=== PATIENT | male | born 1990 | race Caucasian/White ===

== ENCOUNTER 2018-02-04 13:47 | Emergency (ER) | payer MEDICAID, OTHER ==
[~2018-02-04] VITALS: Ht 185.4 cm; Wt 79.4 kg
--- NOTE | 2018-02-04 14:14 | NUR ---
PT IS IN ROOM #2B. DR GARRIDO EVALUATED THE PT.
[2018-02-04] MEDS ORDERED: ALBUTEROL SULFATE 2.5 MG/3 ML NEBU NEB ONE (14:30)
[2018-02-04] MEDS ORDERED: ALBUTEROL SULFATE 2.5 MG/3 ML NEBU ONE (14:38)
[2018-02-04 14:53] LABS: BASOPHILS # (AUTO) 0.1 K/uL (0.0-8.0); BASOPHILS % (AUTO) 0.9 % (0.0-2.0); EOSINOPHILS # (AUTO) 0.1 K/uL (0.0-0.7); EOSINOPHILS % (AUTO) 1.5 % (0.0-7.0); HEMATOCRIT 44.9 % (36.7-47.1); HEMOGLOBIN 15.5 g/dL (12.5-16.3); LYMPHOCYTES # (AUTO) 2.2 K/uL (20.0-40.0); LYMPHOCYTES % (AUTO) 39.4 % (20.5-51.5); MEAN CORPUSCULAR HEMOGLOBIN 32.2 uug (23.8-33.4); MEAN CORPUSCULAR HGB CONC 35 g/dL (32.5-36.3); MEAN CORPUSCULAR VOLUME 93.1 fL (73.0-96.2); MONOCYTES # (AUTO) 0.5 K/uL (2.0-10.0); MONOCYTES % (AUTO) 8.5 % (0.0-11.0); NEUTROPHILS # (AUTO) 2.8 K/uL (1.8-8.9); NEUTROPHILS % (AUTO) 49.7 % (38.5-71.5); PLATELET COUNT (AUTO) 200 K/uL (152-348); RED BLOOD CELL COUNT(AUTO) 4.82 MIL/uL (4.06-5.63); WHITE BLOOD COUNT (AUTO) 5.5 K/uL (3.6-10.2)
[2018-02-04 15:02] LABS: POTASSIUM 4.1 mmol/L (3.5-5.1)
[2018-02-04 15:15] LABS: BILIRUBIN,DIRECT 0.2 mg/dL (0.0-0.2); BILIRUBIN,TOTAL 1.3 mg/dL (0.2-1.0); TOTAL PROTEIN, SERUM 7.9 g/dL (6.4-8.2)
--- NOTE | 2018-02-04 16:20 | NUR ---
Patient does not wish to proceed with medical care recommended by Dr. GARRIDO. Patient given information related to possible complications, up to and including , which could occur as a result of leaving the hospital at this time. Patient verbalizes understanding of risks involved due to leaving against medical advice. Patient has signed AMA form.
[2018-02-04 16:32] VITALS: BP 110/81
--- NOTE | 2018-02-04 16:32 | NUR ---
Patient discharged to home in stable conditon. Written and verbal after care instructions given. Patient verbalizes understanding of instructions.
== END 2018-02-04 16:34 | disposition left against medical advice (07) ==
LOC: ER 13:47
DX: R07.9 Chest pain, unspecified (principal); K21.9 Gastro-esophageal reflux disease without esophagitis
CPT/HCPCS: 36415; 70030-TC; 71045; 85025; 85730; 93005; A4663

== ENCOUNTER 2018-10-14 10:37 | Emergency (ER) | payer MEDICAID ==
[~2018-10-14] VITALS: Ht 185.4 cm; Wt 76.2 kg
--- NOTE | 2018-10-14 10:48 | NUR ---
YEVGENIY HESS AT BEDSIDE FOR MSE.
--- NOTE | 2018-10-14 11:03 | NUR ---
Patient discharged to home in stable conditon. Written and verbal after care instructions given. Patient verbalizes understanding of instructions. ALL BELONGINGS W/ PT. PT SELF-AMBULATED W/O DIFFICULTY.
[2018-10-14 11:04] VITALS: BP 128/86
== END 2018-10-14 11:07 | disposition home or self-care (01) ==
LOC: ER 10:37
DX: F41.9 Anxiety disorder, unspecified (principal); R51 Headache; K21.9 Gastro-esophageal reflux disease without esophagitis
CPT/HCPCS: A4663

== ENCOUNTER 2019-03-14 17:57 | Emergency (ER) | payer MEDICAID ==
[~2019-03-14] VITALS: Ht 185.4 cm; Wt 76.2 kg
--- NOTE | 2019-03-14 19:02 | NUR ---
Patient discharged to home in stable conditon. Written and verbal after care instructions given. Patient verbalizes understanding of instructions.pt walks i nsteady gait.
== END 2019-03-14 19:04 | disposition home or self-care (01) ==
LOC: ER 17:59
DX: B34.9 Viral infection, unspecified (principal); K21.9 Gastro-esophageal reflux disease without esophagitis
CPT/HCPCS: A4663

== ENCOUNTER 2021-01-03 14:17 | Emergency (ER) | payer MEDICAID ==
[~2021-01-03] VITALS: Ht 185.4 cm; Wt 77.1 kg
--- NOTE | 2021-01-03 14:48 | NUR ---
PT IS IN ROOM #1A. DR ZAVALA EVALUATED THE PT.
[2021-01-03 15:21] LABS: *BILIRUBIN,URIN NEGATIVE (NEGATIVE); *BLOOD, URINE NEGATIVE (NEGATIVE); *CLARITY,URINE CLEAR (CLEAR); *COLOR,URINE YELLOW (YELLOW); *KETONES,URINE NEGATIVE (NEGATIVE); *UROBILINOGEN,URINE 0.2 E.U./dl (NORMAL); LEUKOCYTE ESTERASE ,URINE NEGATIVE (NEGATIVE); NITRITE, URINE NEGATIVE (NEGATIVE); UGLUCOSE NEGATIVE (NEGATIVE)
--- NOTE | 2021-01-03 16:32 | NUR ---
PT WAS D/C'd TO HOME D/C INSTRUCTIONS GIVEN TO THE PT BY DR ZAVALA.
[2021-01-03 16:37] VITALS: BP 125/73
[2021-01-06 02:06] LABS: *GC NAA Negative (Negative); *TRIC.VAG. NAA Negative (Negative)
== END 2021-01-03 16:37 | disposition home or self-care (01) ==
LOC: ER 14:20
DX: N48.89 Other specified disorders of penis (principal)
CPT/HCPCS: 87491; A4663

== ENCOUNTER 2021-02-22 23:44 | Emergency (ER) | payer MEDICAID ==
[~2021-02-22] VITALS: Ht 185.4 cm; Wt 78.0 kg
--- NOTE | 2021-02-23 01:00 | NUR ---
Dr. Norris at bedside for MSE.
[2021-02-23 01:27] LABS: HEMATOCRIT 40.7 % (36.7-47.1); MEAN CORPUSCULAR HEMOGLOBIN 32.7 uug (23.8-33.4); MEAN CORPUSCULAR VOLUME 90.9 fL (73.0-96.2); PLATELET COUNT (AUTO) 194 K/uL (152-348); POTASSIUM 3.6 mmol/L (3.5-5.1)
--- NOTE | 2021-02-23 02:19 | NUR ---
Patient discharged to home in stable condition. Written and verbal after care instructions given. Patient verbalizes understanding of instructions. Stressed follow up or return to ER for worsening s/s. Patient out of ER with steady gait, no acute signs of distress, VSS, all belongings taken. Provided with copies of lab, xray, and EKG results
[2021-02-23 02:21] VITALS: BP 118/80
== END 2021-02-23 02:21 | disposition home or self-care (01) ==
LOC: ER 23:46
DX: R07.89 Other chest pain (principal); E83.42 Hypomagnesemia; F17.210 Nicotine dependence, cigarettes, uncomplicated
CPT/HCPCS: 36415; 70030-TC; 71045; 83735; 85025; 93005; A4663

== ENCOUNTER 2021-06-22 16:42 | Emergency (ER) | payer MEDICAID ==
[~2021-06-22] VITALS: Ht 185.4 cm; Wt 80.7 kg
[2021-06-22 17:13] LABS: *BILIRUBIN,URIN NEGATIVE (NEGATIVE); *BLOOD, URINE NEGATIVE (NEGATIVE); *CLARITY,URINE CLEAR (CLEAR); *COLOR,URINE YELLOW (YELLOW); *KETONES,URINE NEGATIVE (NEGATIVE); LEUKOCYTE ESTERASE ,URINE NEGATIVE (NEGATIVE); NITRITE, URINE NEGATIVE (NEGATIVE); PH,URINE 7.5 (5.0-8.0); UGLUCOSE NEGATIVE (NEGATIVE)
[2021-06-22 17:25] LABS: BACTERIA,URINE NONE SEEN /HPF (NONE SEEN); RBC,URINE 0-3 /HPF (0-3); WBC,URINE NONE SEEN /HPF (0-3)
[2021-06-22 17:26] LABS: SQUAMOUS EPITHELIAL CELL,UR FEW /HPF (NONE SEEN)
--- NOTE | 2021-06-22 17:53 | NUR ---
Patient discharged to home in stable condition with brisk steady gait. Written and verbal after care instructions given by MD himself. Patient verbalized understanding and compliance of instructions. Stressed follow up with primary doctor and urologist or return to ER for worsening s/s.
[2021-06-25 08:06] LABS: *GC NAA Negative (Negative)
[2021-06-25 14:06] LABS: *TRIC.VAG. NAA Negative (Negative)
== END 2021-06-22 17:54 | disposition home or self-care (01) ==
LOC: ER 16:44
DX: R30.0 Dysuria (principal)
CPT/HCPCS: 87086; 87491; A4663

== ENCOUNTER 2021-06-24 19:48 | Emergency (ER) | payer MEDICAID ==
[~2021-06-24] VITALS: Ht 185.4 cm; Wt 79.4 kg
--- NOTE | 2021-06-24 20:00 | NUR ---
Patient walked into ER C/O pain on the groin/pelvic area. Patient is A/Ox4
[2021-06-24 20:31] LABS: HEMATOCRIT 44.8 % (36.7-47.1); MEAN CORPUSCULAR HEMOGLOBIN 32.4 uug (23.8-33.4); MEAN CORPUSCULAR VOLUME 92.5 fL (73.0-96.2); PLATELET COUNT (AUTO) 226 K/uL (152-348)
[2021-06-24 20:42] LABS: CREATININE 1.2 mg/dL (0.6-1.3); POTASSIUM 3.7 mmol/L (3.5-5.1)
[2021-06-24 20:48] LABS: BILIRUBIN,TOTAL 2.3 mg/dL (0.2-1.0); TOTAL PROTEIN, SERUM 8.2 g/dL (6.4-8.2)
--- NOTE | 2021-06-24 21:26 | NUR ---
Patient discharged to home in stable condition. Written and verbal after care instructions given. Patient verbalizes understanding of instructions. Stressed follow up or return to ER for worsening s/s. Patient is A/Ox4, no SOB, not in distress.
[2021-06-24 21:27] VITALS: BP 128/84
== END 2021-06-24 21:26 | disposition home or self-care (01) ==
LOC: ER 19:51
DX: Z00.8 Encounter for other general examination (principal)
CPT/HCPCS: 36415; 85025; A4663

== ENCOUNTER 2021-09-19 02:27 | Emergency (ER) | payer MEDICAID ==
[~2021-09-19] VITALS: Ht 185.4 cm; Wt 81.6 kg
--- NOTE | 2021-09-19 02:40 | NUR ---
Patient walked to ER with steady gait. NAD noted.
--- NOTE | 2021-09-19 02:48 | NUR ---
Pt provided urine sample, sent to lab.
[2021-09-19 03:20] LABS: *BILIRUBIN,URIN NEGATIVE (NEGATIVE); *CLARITY,URINE CLEAR (CLEAR); *COLOR,URINE YELLOW (YELLOW); *KETONES,URINE NEGATIVE (NEGATIVE); *UROBILINOGEN,URINE 0.2 E.U./dl (NORMAL); LEUKOCYTE ESTERASE ,URINE NEGATIVE (NEGATIVE); NITRITE, URINE NEGATIVE (NEGATIVE); UGLUCOSE NEGATIVE (NEGATIVE)
[2021-09-19 03:21] LABS: *BLOOD, URINE TRACE (NEGATIVE)
[2021-09-19 03:22] LABS: BACTERIA,URINE NONE SEEN /HPF (NONE SEEN); SQUAMOUS EPITHELIAL CELL,UR NONE SEEN /HPF (NONE SEEN); WBC,URINE NONE SEEN /HPF (0-3)
--- NOTE | 2021-09-19 04:23 | NUR ---
patient back from CT
[2021-09-19] MEDS ORDERED: ONDA4TAB5 PO (06:21)
--- NOTE | 2021-09-19 06:42 | NUR ---
Patient discharged to home in stable condition. Written and verbal after care instructions given. Patient verbalizes understanding of instructions. Stressed follow up or return to ER for worsening s/s. Patient is a/ox4, NAD noted. Patient is able to walk with steady gait
[2021-09-19 06:49] VITALS: BP 121/67
== END 2021-09-19 06:42 | disposition home or self-care (01) ==
LOC: ER 03:01
DX: R10.9 Unspecified abdominal pain (principal); R31.29 Other microscopic hematuria; Z72.0 Tobacco use
CPT/HCPCS: A4663

== ENCOUNTER 2022-03-03 11:58 | Emergency (ER) | payer MEDICAID ==
[~2022-03-03] VITALS: Ht 185.4 cm; Wt 79.4 kg
[~2022-03-03 11:58] MED LIST: ONDA4TAB5 PO
--- NOTE | 2022-03-03 12:09 | NUR ---
patient being seen by ER physician
[2022-03-03] MEDS ORDERED: ALBU18HF2 INH (12:15)
--- NOTE | 2022-03-03 12:18 | NUR ---
discharge instructions given to patient with prescription.
[2022-03-03 12:19] VITALS: BP 139/76
== END 2022-03-03 12:19 | disposition home or self-care (01) ==
LOC: ER 11:58
DX: T60.91XA Toxic effect of unspecified pesticide, accidental (unintentional), initial encounter (principal); R42 Dizziness and giddiness; Y92.039 Unspecified place in apartment as the place of occurrence of the external cause; R09.89 Other specified symptoms and signs involving the circulatory and respiratory systems; Z72.0 Tobacco use
CPT/HCPCS: A4663

== ENCOUNTER 2022-03-12 18:29 | Emergency (ER) | payer MEDICAID ==
[~2022-03-12] VITALS: Ht 185.4 cm; Wt 79.4 kg
[~2022-03-12 18:29] MED LIST changes: +ALBU18HF2 INH
[2022-03-12] MEDS ORDERED: MORPHINE SULFATE 4 MG/1 ML DISP.SYRIN IV ONE (19:30)
[2022-03-12] MEDS ORDERED: IV NORMAL SALINE 1000 ML BAG IV ONE (19:30)
[2022-03-12] MEDS ORDERED: PANTOPRAZOLE SODIUM IV 80 MG in IV DEXTROSE 5% 100 ML IV ONE (19:30)
[2022-03-12] MEDS ORDERED: PANTOPRAZOLE SODIUM IV 80 MG in IV DEXTROSE 5% 500 ML IV ONE (19:30)
[2022-03-12] MEDS ORDERED: ONDANSETRON 4 MG/2 ML VIAL IV ONE (19:30)
[2022-03-12 19:36] LABS: HEMATOCRIT 46.5 % (36.7-47.1); MEAN CORPUSCULAR HEMOGLOBIN 31.7 uug (23.8-33.4); MEAN CORPUSCULAR VOLUME 91.9 fL (73.0-96.2); PLATELET COUNT (AUTO) 231 K/uL (152-348)
[2022-03-12] MEDS ORDERED: PANTOPRAZOLE SODIUM 40 MG VIAL ONE (19:43)
[2022-03-12] MEDS ORDERED: ONDANSETRON 4 MG/2 ML VIAL ONE (19:44)
[2022-03-12] MEDS ORDERED: MORPHINE SULFATE 4 MG/1 ML DISP.SYRIN ONE (19:44)
[2022-03-12 19:50] LABS: *BILIRUBIN,URIN NEGATIVE (NEGATIVE); *CLARITY,URINE CLEAR (CLEAR); *COLOR,URINE YELLOW (YELLOW); *KETONES,URINE 2+ (NEGATIVE); *UROBILINOGEN,URINE 0.2 E.U./dl (NORMAL); LEUKOCYTE ESTERASE ,URINE NEGATIVE (NEGATIVE); NITRITE, URINE NEGATIVE (NEGATIVE); UGLUCOSE NEGATIVE (NEGATIVE)
[2022-03-12 19:51] LABS: BILIRUBIN,DIRECT 0.4 mg/dL (0.0-0.2); BILIRUBIN,TOTAL 2.1 mg/dL (0.2-1.0); CREATININE 1.4 mg/dL (0.6-1.3); POTASSIUM 3.4 mmol/L (3.5-5.1)
--- NOTE | 2022-03-12 19:52 | NUR ---
ADDENDUM: Intravenous End Time Documentation: Normal saline 1 liter (IV-WO) : start time: 1951 PM ; end time: 2051 PM: IV site: LAC PIV # 20 Port # 1 Protonix 80 mg IN 100 CC NS IVPB AT 50 CC /HR : start time: 2026 ; end time: 2299: IV site:LAC PIV # 20 Port # 2
[2022-03-12 19:55] LABS: *BLOOD, URINE TRACE (NEGATIVE)
--- NOTE | 2022-03-12 20:09 | NUR ---
AMBULATED INTO ROOM #4, ASSISTED INTO GOWN, PLACED ON MONITOR AND INFORMED OF PLAN OF CARE. #20G ESTABLISHED IN LEFT AC AREA, BLOOD COLLECTED AND SENT TO LAB. BEDSIDE EKG DONE FOR MD REVIEW. IVF INFUSING PER ORDER, PATIENT REFUSED MORPHINE AT THIS TIME. SIDE RAIL UP WILL CONTINUE TO MONITOR.
--- NOTE | 2022-03-12 20:52 | NUR ---
CONTINUES TO REST WITHOUT ANY C/O AT THIS TIME.
[2022-03-12 21:17] LABS: *OCCULT BLOOD STOOL NEGATIVE (NEGATIVE)
--- NOTE | 2022-03-12 22:01 | NUR ---
YEVGENIY HESS TALKING TO DR MATOS RE: PATIENT PLAN OF CARE.
[2022-03-12 22:04] LABS: BACTERIA,URINE NONE SEEN /HPF (NONE SEEN); MUCUS,URINE FEW /LPF (0-FEW); SQUAMOUS EPITHELIAL CELL,UR FEW /HPF (NONE SEEN); WBC,URINE 0-3 /HPF (0-3)
[2022-03-12] MEDS ORDERED: FAMO-132 PO (22:30)
[2022-03-12] MEDS ORDERED: ONDA4TAB11 PO (22:30)
--- NOTE | 2022-03-12 23:20 | NUR ---
ACI GIVEN, STATES UNDERSTANDING, HL REMOVED, REMAINS STABLE FOR DISCHARGE.
[2022-03-12 23:21] VITALS: BP 124/74
[2022-03-17] MEDS ORDERED: SUCR1ORA PO (19:46)
[2022-03-17] MEDS ORDERED: ESOM40CA PO (19:46)
== END 2022-03-12 23:21 | disposition home or self-care (01) ==
LOC: ER 18:40
DX: K92.2 Gastrointestinal hemorrhage, unspecified (principal); R10.13 Epigastric pain; R11.10 Vomiting, unspecified; N28.9 Disorder of kidney and ureter, unspecified; E80.6 Other disorders of bilirubin metabolism; K21.9 Gastro-esophageal reflux disease without esophagitis; Z72.0 Tobacco use; K44.9 Diaphragmatic hernia without obstruction or gangrene
CPT/HCPCS: 99285; 96365; 96366; 96375; 82270; 80076; 80048; 81001; 83690; 85025; 85730; 86850; 86900; 86901; 36415; 93005; 86677 ×2; J2405; C9113 ×3; J7060 ×2; J7040; A4663; J2270

== ENCOUNTER 2022-03-14 21:18 | Inpatient (IN) | payer MEDICAID ==
[~2022-03-14] VITALS: Ht 185.4 cm; Wt 77.1 kg
[~2022-03-14 21:18] MED LIST changes: -ALBU18HF2 INH; +FAMO-132 PO; +ONDA4TAB11 PO; -ONDA4TAB5 PO
--- NOTE | 2022-03-14 21:58 | NUR ---
After being triaged patient was placed back in the waiting room to wait for room opening.
--- NOTE | 2022-03-15 01:26 | NUR ---
Patient placed in room at this time.
[2022-03-15] MEDS: PANTOPRAZOLE SODIUM 40 MG VIAL IV ONE ×2 (01:45→06:48)
[2022-03-15] MEDS ORDERED: LIDOCAINE VISCUS 2% 15 ML UDC MM ONE (01:45)
[2022-03-15] MEDS: METOCLOPRAMIDE HCL 10 MG/2 ML VIAL IV ONE ×2 (01:45→06:48)
[2022-03-15] MEDS ORDERED: MAG HYDROX/AL HYDROX/SIMETH 30 ML LIQUID UDC PO ONE (01:45)
[2022-03-15] MEDS ORDERED: IV NORMAL SALINE 1000 ML BAG IV ONE (01:45)
[2022-03-15 01:56] LABS: CARBON DIOXIDE 23 mmol/L (21-32); CHLORIDE 99 mmol/L (98-107); CREATININE 1.2 mg/dL (0.6-1.3); GLUCOSE 74 mg/dL (74-106); POTASSIUM 3.5 mmol/L (3.5-5.1); UREA NITROGEN, BLOOD 11 mg/dL (7-18)
[2022-03-15 02:02] LABS: ALANINE AMINOTRANSFERASE 23 U/L (16-63); ALKALINE PHOSPHATASE 42 U/L (50-136); ASPARTATE AMINOTRANSFERASE 14 U/L (15-37); BILIRUBIN,TOTAL 2.7 mg/dL (0.2-1.0); ETHANOL < 3 MG/DL (0-0)
[2022-03-15 02:15] LABS: HEMATOCRIT 41.7 % (36.7-47.1); MEAN CORPUSCULAR HEMOGLOBIN 31.6 uug (23.8-33.4); MEAN CORPUSCULAR VOLUME 90.9 fL (73.0-96.2); PLATELET COUNT (AUTO) 204 K/uL (152-348)
[2022-03-15] MEDS ORDERED: IOHEXOL 300MG/ML 100 ML INFUS..BTL ONE (02:24)
[2022-03-15] MEDS ORDERED: SWABABLE VALVE TRANSFER SET EA MC ONE (02:25)
[2022-03-15] MEDS ORDERED: IV NORMAL SALINE 250 ML IV ONE (02:25)
[2022-03-15] MEDS ORDERED: MAG HYDROX/AL HYDROX/SIMETH 30 ML LIQUID UDC ONE (02:45)
[2022-03-15] MEDS ORDERED: LIDOCAINE VISCUS 2% 15 ML UDC ONE (02:45)
[2022-03-15] MEDS ORDERED: PANTOPRAZOLE SODIUM 40 MG VIAL ONE ×2 (02:45→09:14)
[2022-03-15] MEDS ORDERED: METOCLOPRAMIDE HCL 10 MG/2 ML VIAL ONE (02:46)
--- NOTE | 2022-03-15 04:13 | NUR ---
Rosanna called and spoke with Madalyn case coordinator to give clinical information about patient.
--- NOTE | 2022-03-15 06:25 | NUR ---
Dr. Dickson on panel call with Chris Saeed NP.
[2022-03-15] MEDS ORDERED: MAGNESIUM HYDROXIDE 30 ML LIQUID UDC PO PRN (07:00)
[2022-03-15] MEDS ORDERED: ACETAMINOPHEN 325 MG TABLET PO PRN (07:00)
[2022-03-15] MEDS ORDERED: ONDANSETRON 4 MG/2 ML VIAL IV PRN (07:00)
[2022-03-15] MEDS ORDERED: METOCLOPRAMIDE HCL 10 MG/2 ML VIAL IV PRN (07:00)
[2022-03-15] MEDS ORDERED: REMEDY ESSENTIAL ZINC PASTE 113 GM TP PRN (07:00)
[2022-03-15] MEDS ORDERED: PROCHLORPERAZINE EDISYLATE 10 MG/2 ML VIAL IM PRN (07:00)
--- NOTE | 2022-03-15 07:30 | NUR ---
Received report from Raji RAMOS.
--- NOTE | 2022-03-15 07:30 | NUR ---
Received report from Raji RAMOS.
[2022-03-15] MEDS: PANTOPRAZOLE SODIUM 40 MG VIAL IV SCH (09:00)
[2022-03-15] MEDS: IV NS 1000 ML 1,000 ML IV PRN (09:30)
--- NOTE | 2022-03-15 09:30 | NUR ---
Pt refused to received Protonix 40mg. "I think I just had it at around 4am, I won't be having it right now. " - per pt. Explained risks and benefits, pt acknowledged and still refused.
[2022-03-15 12:35] LABS: *BILIRUBIN,URIN NEGATIVE (NEGATIVE); *CLARITY,URINE CLEAR (CLEAR); *COLOR,URINE YELLOW (YELLOW); *KETONES,URINE 4+ (NEGATIVE); *UROBILINOGEN,URINE 0.2 E.U./dl (NORMAL); LEUKOCYTE ESTERASE ,URINE NEGATIVE (NEGATIVE); NITRITE, URINE NEGATIVE (NEGATIVE); PH,URINE 5.5 (5.0-8.0); UGLUCOSE NEGATIVE (NEGATIVE)
[2022-03-15 12:36] LABS: *BLOOD, URINE TRACE (NEGATIVE)
[2022-03-15 12:56] LABS: *AMPHETAMINE, URINE NEGATIVE (NEGATIVE); *CANNABINOID, URINE NEGATIVE (NEGATIVE); *COCCAINE, URINE NEGATIVE (NEGATIVE); *PHENCYCLIDINE SCREEN,URINE NEGATIVE (NEGATIVE)
[2022-03-15 13:55] LABS: BACTERIA,URINE NONE SEEN /HPF (NONE SEEN); RBC,URINE 0-3 /HPF (0-3); SQUAMOUS EPITHELIAL CELL,UR FEW /HPF (NONE SEEN); WBC,URINE 0-3 /HPF (0-3)
--- NOTE | 2022-03-15 14:43 | NUR ---
[place] to Dr. Lara with regards to pt's GI consult, stated that GI would probably see him tomorrow night or the ff. days. Pt acknowledged.
--- NOTE | 2022-03-15 16:12 | NUR ---
Spoke to Debbi from [place], pt was requesting to be transfered to a different hospital d/t unavailability of the GI today. Per Debbi, pt is not qualified to be transfered to a different hospital because we have a GI but not to be consulting him today. Pt aware.
--- NOTE | 2022-03-15 16:38 | NUR ---
Txted Dr. Lara if the pt can have PO tonight. Dr. Lara said "yes". Pt aware.
--- NOTE | 2022-03-15 16:55 | NUR ---
Gave report to Jakub RAMOS.
[2022-03-15 17:20] VITALS: BP 127/68
--- NOTE | 2022-03-15 17:22 | NUR ---
Pt in stable condition, Remigio kapoor/S WNL. Transported pt via wheelchair, to [facility] unit, Rm [id number]. Received by Jakub RAMOS. Addendum: 03/15/22 at 1728 by DARIUS *Med-Surg Unit
--- NOTE | 2022-03-15 19:52 | NUR ---
RECEIVED REPORT FROM RACHEL JENNINGS FROM ER. PATIENT ARRIVED ON UNIT AT 1720. PATIENT IS ALERT & ORIENTED X4, AND ABLE TO SPEAK [place]. VITAL SIGNS STABLE. RN ORIENTED PATIENT TO UNIT. PATIENT AGREEABLE TO CHANGE INTO GOWNS AND SOCKS. PATIENT BELONGINGS LIST COMPLETED, SIGNED BY PATIENT. PATIENT DENIES NAUSEA UPON ADMISSION TO UNIT. PATIENT DENIES PAIN. ADMISSION DOCUMENTS AND EDUCATION COMPLETED. PER REPORT, DR. KRISTEN MD, CLEARED PATIENT TO RECEIVE FOOD, UNTIL MIDNIGHT PATIENT WILL BE NPO AGAIN. RN APPLIED REGULAR DIET TO ORDERS. PATIENT DENIES NAUSEA AND VOMITING AT THIS TIME. PATIENT VOIDS, NO BOWEL MOVEMENT NOTED. FALL PRECAUTIONS OBSERVED. PATIENT UNDERSTANDS TO CALL RN REGARDING ASSISTANCE. NO ACUTE DISTRESS NOTED. ALL NEEDS MET AT THIS TIME. ENDORSED CARE TO LEW GUZMAN, FOR CONTINUATION OF CARE.
[2022-03-15 20:00] VITALS: BP 126/84
--- NOTE | 2022-03-15 20:00 | NUR ---
NSG: Received patient lying in bed. a/o x4,ambulatory. no c/o n/v at this time. family at bedside. call light w/in reach.
[2022-03-15] MEDS: SUCRALFATE 1 G/10 ML LIQUID UDC PO SCH ×3 (20:43→21:26)
[2022-03-15] MEDS: DOCUSATE SODIUM 100 MG CAPSULE PO SCH ×3 (20:44→21:26)
[2022-03-16 04:00] VITALS: BP 113/56
[2022-03-16] MEDS: IV NS 1000 ML 1,000 ML IV PRN (06:30)
[2022-03-16 06:56] LABS: HEMATOCRIT 37.9 % (36.7-47.1); MEAN CORPUSCULAR HEMOGLOBIN 31.3 uug (23.8-33.4); MEAN CORPUSCULAR VOLUME 91.3 fL (73.0-96.2); PLATELET COUNT (AUTO) 189 K/uL (152-348)
[2022-03-16 07:19] LABS: CREATININE 1.1 mg/dL (0.6-1.3); MAGNESIUM 1.8 mg/dL (1.8-2.4); PHOSPHOROUS 3.7 mg/dL (2.5-4.9); POTASSIUM 3.9 mmol/L (3.5-5.1)
[2022-03-16] MEDS: SUCRALFATE 1 G/10 ML LIQUID UDC PO SCH ×4 (07:30→20:51)
[2022-03-16] MEDS: PANTOPRAZOLE SODIUM 40 MG VIAL IV SCH ×2 (09:00→20:52)
[2022-03-16 11:55] VITALS: BP 124/66
[2022-03-16 16:00] VITALS: BP 118/68
[2022-03-16] MEDS: DOCUSATE SODIUM 100 MG CAPSULE PO SCH (20:51)
[2022-03-16] MEDS ORDERED: IV D5/ 0.9% NACL 1,000 ML IV PRN (21:30)
[2022-03-17] MEDS: SUCRALFATE 1 G/10 ML LIQUID UDC PO SCH ×3 (06:43→16:57)
[2022-03-17] MEDS ORDERED: PANTOPRAZOLE SODIUM 40 MG VIAL IV SCH (09:00)
[2022-03-17 12:00] VITALS: BP 141/89
[2022-03-17] MEDS ORDERED: ONDANSETRON 4 MG/2 ML VIAL IV PRN (12:15)
[2022-03-17 16:00] VITALS: BP 145/87
[2022-03-17] MEDS ORDERED: SUCR1ORA PO (19:46)
[2022-03-17] MEDS ORDERED: ESOM40CA PO (19:46)
--- NOTE | 2022-03-17 20:07 | NUR ---
PATIENT DISCHARGED HOME IN STABLE CONDITION.
== END 2022-03-17 20:07 | disposition home or self-care (01) | DRG 241 ==
LOC: ER 21:21 → TRANSITION 03-15 06:25 → TELE3 03-15 16:54 → MEDSURG3 03-15 17:11
PROVIDERS: ADMIT Internal Medicine; ATTEND Internal Medicine
DX: K29.20 Alcoholic gastritis without bleeding (principal); E87.29 Other acidosis; E80.6 Other disorders of bilirubin metabolism; E86.0 Dehydration; F32.A Depression, unspecified; F41.9 Anxiety disorder, unspecified; Z87.891 Personal history of nicotine dependence; Z20.822 Contact with and (suspected) exposure to COVID-19; K64.8 Other hemorrhoids; K44.9 Diaphragmatic hernia without obstruction or gangrene; F10.21 Alcohol dependence, in remission; R63.4 Abnormal weight loss; Z68.22 Body mass index [BMI] 22.0-22.9, adult; E80.4 Gilbert syndrome; K27.9 Peptic ulcer, site unspecified, unspecified as acute or chronic, without hemorrhage or perforation
CPT/HCPCS: 36415; 83605; 83690; 83735; 84100; 84484; 85025; 85730; A4663; C9113; G0378; G0480; J2405; J2765; J7040; J7042; Q9967

== ENCOUNTER 2022-07-15 16:31 | Emergency (ER) | payer MEDICAID ==
[~2022-07-15] VITALS: Ht 185.4 cm; Wt 74.8 kg
[~2022-07-15 16:31] MED LIST changes: +ESOM40CA PO; -FAMO-132 PO; +SUCR1ORA PO
[2022-07-15 16:59] LABS: HEMATOCRIT 43.2 % (36.7-47.1); MEAN CORPUSCULAR HEMOGLOBIN 31.2 uug (23.8-33.4); MEAN CORPUSCULAR VOLUME 92.1 fL (73.0-96.2); PLATELET COUNT (AUTO) 224 K/uL (152-348)
[2022-07-15 17:13] LABS: CARBON DIOXIDE 26 mmol/L (21-32); CHLORIDE 105 mmol/L (98-107); CREATININE 1.1 mg/dL (0.6-1.3); GLUCOSE 99 mg/dL (74-106); POTASSIUM 3.3 mmol/L (3.5-5.1); UREA NITROGEN, BLOOD 9 mg/dL (7-18)
[2022-07-15 17:22] LABS: ALANINE AMINOTRANSFERASE 31 U/L (16-63); ALKALINE PHOSPHATASE 54 U/L (50-136); ASPARTATE AMINOTRANSFERASE 16 U/L (15-37); BILIRUBIN,DIRECT 0.3 mg/dL (0.0-0.2); BILIRUBIN,TOTAL 1.5 mg/dL (0.2-1.0); TOTAL PROTEIN, SERUM 7.8 g/dL (6.4-8.2)
--- NOTE | 2022-07-15 18:28 | NUR ---
Patient discharged to home in stable condition. Written and verbal after care instructions given. Patient verbalizes understanding of instructions. Stressed follow up or return to ER for worsening s/s.
== END 2022-07-15 19:03 | disposition home or self-care (01) ==
LOC: ER 16:32
DX: R07.89 Other chest pain (principal); F17.210 Nicotine dependence, cigarettes, uncomplicated; Z79.899 Other long term (current) drug therapy
CPT/HCPCS: 36415; 71045; 84484; 85025; 93005; A4663

== ENCOUNTER 2023-07-29 17:31 | Emergency (ER) | payer SELFPAY ==
[~2023-07-29] VITALS: Ht 185.4 cm; Wt 75.3 kg
[2023-07-29 18:41] LABS: *BILIRUBIN,URIN NEGATIVE (NEGATIVE); *BLOOD, URINE TRACE (NEGATIVE); *CLARITY,URINE CLEAR (CLEAR); *COLOR,URINE YELLOW (YELLOW); *KETONES,URINE 1+ (NEGATIVE); *PROTEIN,URINE NEGATIVE (NEGATIVE); *UROBILINOGEN,URINE 0.2 E.U./dl (NORMAL); LEUKOCYTE ESTERASE ,URINE NEGATIVE (NEGATIVE); NITRITE, URINE NEGATIVE (NEGATIVE); PH,URINE 5.5 (5.0-8.0); UGLUCOSE NEGATIVE (NEGATIVE)
[2023-07-29 18:43] LABS: BASOPHILS % (AUTO) 0.7 % (0.0-2.0); EOSINOPHILS # (AUTO) 0.1 K/uL (0.0-0.7); EOSINOPHILS % (AUTO) 1.4 % (0.0-7.0); HEMATOCRIT 42.2 % (36.7-47.1); HEMOGLOBIN 14.2 g/dL (12.5-16.3); LYMPHOCYTES % (AUTO) 31.5 % (20.5-51.5); MEAN CORPUSCULAR HEMOGLOBIN 30.6 uug (23.8-33.4); MEAN CORPUSCULAR HGB CONC 34 g/dL (32.5-36.3); MEAN CORPUSCULAR VOLUME 90.9 fL (73.0-96.2); MONOCYTES # (AUTO) 0.4 K/uL (0.1-1.30); MONOCYTES % (AUTO) 6.7 % (0.0-11.0); NEUTROPHILS # (AUTO) 3.8 K/uL (1.8-8.9); NEUTROPHILS % (AUTO) 59.7 % (38.5-71.5); PLATELET COUNT (AUTO) 196 K/uL (152-348); RED BLOOD CELL COUNT(AUTO) 4.64 MIL/uL (4.06-5.63); RED CELL DISTRIBUTION WIDTH 12.3 % (12.1-16.2); WHITE BLOOD COUNT (AUTO) 6.3 K/uL (3.6-10.2)
[2023-07-29 18:58] LABS: BACTERIA,URINE NONE SEEN /HPF (NONE SEEN); RBC,URINE 0-3 /HPF (0-3); WBC,URINE NONE SEEN /HPF (0-3)
[2023-07-29 18:58] LABS: CALCIUM 8.9 mg/dL (8.5-10.1); CARBON DIOXIDE 25 mmol/L (21-32); CHLORIDE 105 mmol/L (98-107); CREATININE 1.1 mg/dL (0.6-1.3); GLUCOSE 92 mg/dL (74-106); POTASSIUM 3.9 mmol/L (3.5-5.1); SODIUM SERUM 139 mmol/L (136-145); UREA NITROGEN, BLOOD 14 mg/dL (7-18)
[2023-07-29 19:03] LABS: ALANINE AMINOTRANSFERASE 26 U/L (16-63); ALBUMIN 3.9 g/dL (3.4-5.0); ALKALINE PHOSPHATASE 54 U/L (50-136); ASPARTATE AMINOTRANSFERASE 7 U/L (15-37); BILIRUBIN,DIRECT 0.3 mg/dL (0.0-0.2); BILIRUBIN,TOTAL 1.5 mg/dL (0.2-1.0); LIPASE 28 U/L (16-77); TOTAL PROTEIN, SERUM 7.6 g/dL (6.4-8.2)
[2023-07-29] MEDS ORDERED: PHEN-704 PO (20:15)
[2023-07-29] MEDS ORDERED: PHENAZOPYRIDINE HCL 100 MG TABLET ONE (20:22)
[2023-07-29] MEDS: PHENAZOPYRIDINE HCL 100 MG TABLET PO ONE (20:38)
[2023-07-29 20:57] VITALS: BP 125/82; O2SAT 99
== END 2023-07-29 20:45 | disposition home or self-care (01) ==
LOC: ER 17:35
DX: R35.0 Frequency of micturition (principal); F17.200 Nicotine dependence, unspecified, uncomplicated; Z79.899 Other long term (current) drug therapy; Z60.2 Problems related to living alone
CPT/HCPCS: 36415; 83690; 84484; 85025; 85730; A4606; A4663

== ENCOUNTER 2023-08-20 08:06 | Emergency (ER) | payer MEDICAID ==
[~2023-08-20] VITALS: Ht 185.4 cm; Wt 74.8 kg
[~2023-08-20 08:06] MED LIST changes: +PHEN-704 PO
[2023-08-20 08:48] LABS: EOSINOPHILS # (AUTO) 0.1 K/uL (0.0-0.7); EOSINOPHILS % (AUTO) 1.9 % (0.0-7.0); HEMATOCRIT 43.5 % (36.7-47.1); HEMOGLOBIN 14.4 g/dL (12.5-16.3); LYMPHOCYTES # (AUTO) 1.8 K/uL (0.8-4.8); LYMPHOCYTES % (AUTO) 38.6 % (20.5-51.5); MEAN CORPUSCULAR HEMOGLOBIN 30.2 uug (23.8-33.4); MEAN CORPUSCULAR HGB CONC 33 g/dL (32.5-36.3); MONOCYTES # (AUTO) 0.4 K/uL (0.1-1.30); MONOCYTES % (AUTO) 8.7 % (0.0-11.0); NEUTROPHILS # (AUTO) 2.4 K/uL (1.8-8.9); NEUTROPHILS % (AUTO) 49.8 % (38.5-71.5); PLATELET COUNT (AUTO) 197 K/uL (152-348); RED BLOOD CELL COUNT(AUTO) 4.79 MIL/uL (4.06-5.63); RED CELL DISTRIBUTION WIDTH 12.8 % (12.1-16.2); WHITE BLOOD COUNT (AUTO) 4.7 K/uL (3.6-10.2)
[2023-08-20 08:52] LABS: DIFFERENTIAL COMMENT 1
[2023-08-20 08:57] LABS: *BILIRUBIN,URIN NEGATIVE (NEGATIVE); *BLOOD, URINE NEGATIVE (NEGATIVE); *CLARITY,URINE CLEAR (CLEAR); *COLOR,URINE YELLOW (YELLOW); *KETONES,URINE NEGATIVE (NEGATIVE); *PROTEIN,URINE NEGATIVE (NEGATIVE); *UROBILINOGEN,URINE 0.2 E.U./dl (NORMAL); LEUKOCYTE ESTERASE ,URINE NEGATIVE (NEGATIVE); NITRITE, URINE NEGATIVE (NEGATIVE); PH,URINE 5.5 (5.0-8.0); UGLUCOSE NEGATIVE (NEGATIVE)
[2023-08-20 08:57] LABS: CREATININE 1.1 mg/dL (0.6-1.3); POTASSIUM 4.1 mmol/L (3.5-5.1)
[2023-08-20 09:03] LABS: ALBUMIN 3.7 g/dL (3.4-5.0); BILIRUBIN,DIRECT 0.2 mg/dL (0.0-0.2); BILIRUBIN,TOTAL 1.8 mg/dL (0.2-1.0); TOTAL PROTEIN, SERUM 7.6 g/dL (6.4-8.2)
[2023-08-20 09:11] LABS: THYROID STIMULATING HORMONE 1.579 mIU/mL (0.358-3.740)
[2023-08-20 09:27] LABS: MAGNESIUM 2.2 mg/dL (1.8-2.4); URIC ACID 4.4 mg/dL (3.5-7.2)
[2023-08-20 09:37] LABS: C-REACTIVE PROTEIN < 0.01 mg/dL (0.00-0.30)
[2023-08-20] MEDS ORDERED: CYANOCOBALAMIN 1000 MCG/ML VIAL ONE (09:55)
[2023-08-20] MEDS: CYANOCOBALAMIN 1000 MCG/ML VIAL IM ONE (09:59)
[2023-08-20 10:55] VITALS: BP 130/76; TEMP 207.7; O2SAT 98
== END 2023-08-20 10:56 | disposition home or self-care (01) ==
LOC: ER 08:07
DX: R10.9 Unspecified abdominal pain (principal); R11.0 Nausea; F17.210 Nicotine dependence, cigarettes, uncomplicated; Z79.899 Other long term (current) drug therapy
CPT/HCPCS: 99285; 80076; 80048; 81003; 82607; 83735; 84443; 84550; 85025; 86140; 36415; 96372; J3420; A4606; A4663

== ENCOUNTER 2023-08-27 11:26 | Emergency (ER) | payer MEDICAID ==
[~2023-08-27] VITALS: Ht 185.4 cm; Wt 77.1 kg
[2023-08-27 12:38] LABS: BASOPHILS # (AUTO) 0.1 K/UL (0.0-0.2); BASOPHILS % (AUTO) 1.7 % (0.0-2.0); EOSINOPHILS % (AUTO) 0.7 % (0.0-7.0); HEMOGLOBIN 14.3 g/dL (12.5-16.3); LYMPHOCYTES # (AUTO) 1.3 K/uL (0.8-4.8); LYMPHOCYTES % (AUTO) 29.2 % (20.5-51.5); MEAN CORPUSCULAR HGB CONC 33 g/dL (32.5-36.3); MEAN CORPUSCULAR VOLUME 90.2 fL (73.0-96.2); MONOCYTES # (AUTO) 0.3 K/uL (0.1-1.30); MONOCYTES % (AUTO) 6.3 % (0.0-11.0); NEUTROPHILS # (AUTO) 2.8 K/uL (1.8-8.9); NEUTROPHILS % (AUTO) 62.1 % (38.5-71.5); PLATELET COUNT (AUTO) 202 K/uL (152-348); RED BLOOD CELL COUNT(AUTO) 4.77 MIL/uL (4.06-5.63); RED CELL DISTRIBUTION WIDTH 12.8 % (12.1-16.2); WHITE BLOOD COUNT (AUTO) 4.5 K/uL (3.6-10.2)
[2023-08-27 12:55] LABS: ETHANOL < 3 MG/DL (0-10)
[2023-08-27 12:56] LABS: AMMONIA < 10 umol/L (11-32)
[2023-08-27 13:04] LABS: CARBON DIOXIDE 25 mmol/L (21-32); CHLORIDE 105 mmol/L (98-107); GLUCOSE 97 mg/dL (74-106); POTASSIUM 4.1 mmol/L (3.5-5.1); SODIUM SERUM 141 mmol/L (136-145); UREA NITROGEN, BLOOD 11 mg/dL (7-18)
[2023-08-27] MEDS ORDERED: B CO1TAB6 PO (13:06)
[2023-08-27] MEDS ORDERED: THIA100T88 PO (13:06)
[2023-08-27 13:12] LABS: ALANINE AMINOTRANSFERASE 29 U/L (16-63); ALBUMIN 3.8 g/dL (3.4-5.0); ALKALINE PHOSPHATASE 53 U/L (50-136); ASPARTATE AMINOTRANSFERASE 7 U/L (15-37); BILIRUBIN,DIRECT 0.3 mg/dL (0.0-0.2); BILIRUBIN,TOTAL 1.3 mg/dL (0.2-1.0); TOTAL PROTEIN, SERUM 7.4 g/dL (6.4-8.2)
[2023-08-27 14:15] VITALS: BP 148/88; O2SAT 99
== END 2023-08-27 14:17 | disposition home or self-care (01) ==
LOC: ER 11:34
DX: I67.89 Other cerebrovascular disease (principal); K21.9 Gastro-esophageal reflux disease without esophagitis; Z79.899 Other long term (current) drug therapy; Z79.1 Long term (current) use of non-steroidal anti-inflammatories (NSAID); Z60.2 Problems related to living alone
CPT/HCPCS: 36415; 84484; 85025; 85730; A4606; A4663; G0480

== ENCOUNTER 2023-10-10 08:49 | Emergency (ER) | payer MEDICAID ==
[~2023-10-10] VITALS: Ht 185.4 cm; Wt 72.6 kg
[~2023-10-10 08:49] MED LIST changes: +B CO1TAB6 PO; +THIA100T88 PO
[2023-10-10] MEDS: IV NS 1000 ML 1,000 ML IV ONE (10:15)
[2023-10-10] MEDS: POTASSIUM BICARBONATE/CIT AC 25 MEQ TABLET.EFF PO ONE (10:15)
[2023-10-10] MEDS: THIAMINE HCL 100 MG TABLET PO ONE (10:15)
[2023-10-10 10:24] LABS: BASOPHILS # (AUTO) 0.2 K/UL (0.0-0.2); BASOPHILS % (AUTO) 2.8 % (0.0-2.0); EOSINOPHILS # (AUTO) 0.3 K/uL (0.0-0.7); EOSINOPHILS % (AUTO) 3.8 % (0.0-7.0); HEMATOCRIT 43.8 % (36.7-47.1); LYMPHOCYTES # (AUTO) 1.1 K/uL (0.8-4.8); LYMPHOCYTES % (AUTO) 14.7 % (20.5-51.5); MEAN CORPUSCULAR HEMOGLOBIN 31.2 uug (23.8-33.4); MEAN CORPUSCULAR HGB CONC 34 g/dL (32.5-36.3); MONOCYTES # (AUTO) 0.6 K/uL (0.1-1.30); MONOCYTES % (AUTO) 7.5 % (0.0-11.0); NEUTROPHILS # (AUTO) 5.3 K/uL (1.8-8.9); NEUTROPHILS % (AUTO) 71.2 % (38.5-71.5); PLATELET COUNT (AUTO) 230 K/uL (152-348); RED BLOOD CELL COUNT(AUTO) 4.81 MIL/uL (4.06-5.63); RED CELL DISTRIBUTION WIDTH 13.6 % (12.1-16.2); WHITE BLOOD COUNT (AUTO) 7.4 K/uL (3.6-10.2)
[2023-10-10 10:30] LABS: CALCIUM 9.3 mg/dL (8.5-10.1); CREATININE 1.1 mg/dL (0.6-1.3); POTASSIUM 3.8 mmol/L (3.5-5.1)
[2023-10-10] MEDS ORDERED: THIAMINE HCL 100 MG TABLET ONE (10:32)
[2023-10-10] MEDS ORDERED: POTASSIUM BICARBONATE/CIT AC 25 MEQ TABLET.EFF ONE (10:32)
[2023-10-10 10:35] LABS: DIFFERENTIAL COMMENT 1
[2023-10-10 10:36] LABS: BILIRUBIN,DIRECT 0.4 mg/dL (0.0-0.2); BILIRUBIN,TOTAL 2.5 mg/dL (0.2-1.0)
--- NOTE | 2023-10-10 12:40 | NUR ---
Patient discharged to home in stable condition. Written and verbal after care instructions given. Patient verbalizes understanding of instructions. Stressed follow up or return to ER for worsening s/s.PT SAYS FEELS BETTER. PT WALKS IN STEADY GAIT.
[2023-10-10 13:51] VITALS: BP 121/89; O2SAT 99
== END 2023-10-10 12:40 | disposition home or self-care (01) ==
LOC: ER 08:49
DX: F10.90 Alcohol use, unspecified, uncomplicated (principal); K21.9 Gastro-esophageal reflux disease without esophagitis; F17.200 Nicotine dependence, unspecified, uncomplicated; Z79.899 Other long term (current) drug therapy; Z60.2 Problems related to living alone; Y90.9 Presence of alcohol in blood, level not specified
CPT/HCPCS: 99284; 96360; 96361; 80076; 80048; 83735; 85025; 36415; 93005; J7040; A4606; A4663

== ENCOUNTER 2024-01-31 11:06 | Emergency (ER) | payer MEDICAID ==
[~2024-01-31] VITALS: Ht 185.4 cm; Wt 72.6 kg
[2024-01-31] MEDS ORDERED: THIAMINE HCL 200 MG/2 ML VIAL ONE (11:34)
[2024-01-31] MEDS ORDERED: PYRIDOXINE HCL 100 MG/1 ML VIAL ONE (11:34)
[2024-01-31] MEDS: IV NORMAL SALINE 1000 ML BAG IV ONE (11:38)
[2024-01-31] MEDS: THIAMINE HCL 200 MG/2 ML VIAL IV ONE (11:38)
[2024-01-31] MEDS: PYRIDOXINE HCL 100 MG/1 ML VIAL IV ONE (11:38)
[2024-01-31] MEDS: IV LACTATED RINGERS SOLUTION 1,000 ML BAG IV ONE (11:38)
[2024-01-31 11:53] LABS: BASOPHILS % (AUTO) 0.7 % (0.0-2.0); EOSINOPHILS # (AUTO) 0.1 K/uL (0.0-0.7); HEMATOCRIT 41.9 % (36.7-47.1); HEMOGLOBIN 14.6 g/dL (12.5-16.3); LYMPHOCYTES # (AUTO) 1.6 K/uL (0.8-4.8); LYMPHOCYTES % (AUTO) 27.4 % (20.5-51.5); MEAN CORPUSCULAR HEMOGLOBIN 32.5 uug (23.8-33.4); MEAN CORPUSCULAR HGB CONC 35 g/dL (32.5-36.3); MEAN CORPUSCULAR VOLUME 93.5 fL (73.0-96.2); MONOCYTES # (AUTO) 0.4 K/uL (0.1-1.30); MONOCYTES % (AUTO) 6.1 % (0.0-11.0); NEUTROPHILS # (AUTO) 3.8 K/uL (1.8-8.9); NEUTROPHILS % (AUTO) 64.8 % (38.5-71.5); PLATELET COUNT (AUTO) 218 K/uL (152-348); RED BLOOD CELL COUNT(AUTO) 4.48 MIL/uL (4.06-5.63); RED CELL DISTRIBUTION WIDTH 12.9 % (12.1-16.2); WHITE BLOOD COUNT (AUTO) 5.8 K/uL (3.6-10.2)
[2024-01-31 12:03] LABS: ETHANOL < 3 MG/DL (0-10)
[2024-01-31 12:17] LABS: AMMONIA 15 umol/L (11-32)
[2024-01-31 12:30] LABS: ALANINE AMINOTRANSFERASE 20 U/L (16-63); ALBUMIN 3.7 g/dL (3.4-5.0); ALKALINE PHOSPHATASE 55 U/L (50-136); ASPARTATE AMINOTRANSFERASE 17 U/L (15-37); BILIRUBIN,DIRECT 0.4 mg/dL (0.0-0.2); BILIRUBIN,TOTAL 2.6 mg/dL (0.2-1.0); CALCIUM 9.4 mg/dL (8.5-10.1); CARBON DIOXIDE 23 mmol/L (21-32); CHLORIDE 100 mmol/L (98-107); CREATININE 1.1 mg/dL (0.6-1.3); GLUCOSE 101 mg/dL (74-106); LIPASE 23 U/L (16-77); SODIUM SERUM 134 mmol/L (136-145); TOTAL PROTEIN, SERUM 7.6 g/dL (6.4-8.2); UREA NITROGEN, BLOOD 10 mg/dL (7-18)
[2024-01-31 12:31] LABS: ACETAMINOPHEN < 2.0 ug/mL (10-30); MAGNESIUM 2.2 mg/dL (1.8-2.4)
[2024-01-31] MEDS ORDERED: FAMO20TA8 PO (13:01)
[2024-01-31 13:13] LABS: *BILIRUBIN,URIN NEGATIVE (NEGATIVE); *CLARITY,URINE CLEAR (CLEAR); *COLOR,URINE YELLOW (YELLOW); *KETONES,URINE 2+ (NEGATIVE); *PROTEIN,URINE NEGATIVE (NEGATIVE); *UROBILINOGEN,URINE 0.2 E.U./dl (NORMAL); LEUKOCYTE ESTERASE ,URINE NEGATIVE (NEGATIVE); NITRITE, URINE NEGATIVE (NEGATIVE); UGLUCOSE NEGATIVE (NEGATIVE)
[2024-01-31] MEDS ORDERED: CHLO25CA22 PO (13:13)
[2024-01-31 13:19] LABS: *AMPHETAMINE, URINE NEGATIVE (NEGATIVE); *BARBITURATE, URINE NEGATIVE (NEGATIVE); *BENZODIAZEPINE, URINE NEGATIVE (NEGATIVE); *CANNABINOID, URINE NEGATIVE (NEGATIVE); *COCCAINE, URINE NEGATIVE (NEGATIVE); *OPIATE, URINE NEGATIVE (NEGATIVE); *PHENCYCLIDINE SCREEN,URINE NEGATIVE (NEGATIVE); FENTANYL, URINE NEGATIVE (NEGATIVE)
[2024-01-31 13:21] LABS: *BLOOD, URINE TRACE (NEGATIVE)
[2024-01-31 13:23] VITALS: BP 121/88; O2SAT 99
[2024-01-31 13:49] LABS: RBC,URINE 0-3 /HPF (0-3); WBC,URINE NONE SEEN /HPF (0-3)
== END 2024-01-31 13:24 | disposition home or self-care (01) ==
LOC: ER 11:06
DX: K29.70 Gastritis, unspecified, without bleeding (principal); F10.10 Alcohol abuse, uncomplicated; K21.9 Gastro-esophageal reflux disease without esophagitis; F17.200 Nicotine dependence, unspecified, uncomplicated; Z87.19 Personal history of other diseases of the digestive system; Z20.822 Contact with and (suspected) exposure to COVID-19
CPT/HCPCS: 80076; 80048; 81001; 82140; 82607; 83690; 83735; 85025; 85730; 87426; 36415; 76705; 99285; 96361; 96374; 96375; 80299; 80320; 80307; J3415; J3411; J7120; J7040; A4606; A4663; G0480

== ENCOUNTER 2024-07-24 22:42 | Emergency (ER) | payer MEDICAID ==
[~2024-07-24] VITALS: Ht 185.4 cm; Wt 77.1 kg
[~2024-07-24 22:42] MED LIST changes: +CHLO25CA22 PO; +FAMO20TA8 PO
[2024-07-24] MEDS ORDERED: MAG HYDROX/AL HYDROX/SIMETH 30 ML LIQUID UDC ONE (23:46)
[2024-07-24] MEDS ORDERED: DICYCLOMINE HCL LIQ 10 MG/5 ML UDC ONE (23:46)
[2024-07-24] MEDS ORDERED: LIDOCAINE VISCUS 2% 15 ML UDC ONE (23:46)
[2024-07-24] MEDS: DICYCLOMINE HCL LIQ 10 MG/5 ML UDC PO ONE (23:49)
[2024-07-24] MEDS: IV NORMAL SALINE 1000 ML BAG IV ONE (23:49)
[2024-07-24] MEDS: LIDOCAINE VISCUS 2% 15 ML UDC MM ONE (23:49)
[2024-07-24] MEDS: MAG HYDROX/AL HYDROX/SIMETH 30 ML LIQUID UDC PO ONE (23:50)
[2024-07-24 23:51] LABS: BASOPHILS # (AUTO) 0.1 K/UL (0.0-0.2); BASOPHILS % (AUTO) 0.5 % (0.0-2.0); EOSINOPHILS % (AUTO) 0.2 % (0.0-7.0); HEMATOCRIT 47.5 % (36.7-47.1); HEMOGLOBIN 16.6 g/dL (12.5-16.3); LYMPHOCYTES # (AUTO) 3.1 K/uL (0.8-4.8); LYMPHOCYTES % (AUTO) 27.2 % (20.5-51.5); MEAN CORPUSCULAR HEMOGLOBIN 31.8 uug (23.8-33.4); MEAN CORPUSCULAR HGB CONC 35 g/dL (32.5-36.3); MONOCYTES # (AUTO) 0.9 K/uL (0.1-1.30); MONOCYTES % (AUTO) 7.8 % (0.0-11.0); NEUTROPHILS # (AUTO) 7.4 K/uL (1.8-8.9); NEUTROPHILS % (AUTO) 64.3 % (38.5-71.5); PLATELET COUNT (AUTO) 286 K/uL (152-348); RED BLOOD CELL COUNT(AUTO) 5.21 MIL/uL (4.06-5.63); RED CELL DISTRIBUTION WIDTH 13.5 % (12.1-16.2); WHITE BLOOD COUNT (AUTO) 11.5 K/uL (3.6-10.2)
[2024-07-25 00:01] LABS: CALCIUM 9.1 mg/dL (8.5-10.1); CREATININE 1.3 mg/dL (0.6-1.3); POTASSIUM 3.4 mmol/L (3.5-5.1)
[2024-07-25 00:07] LABS: ALBUMIN 3.9 g/dL (3.4-5.0); BILIRUBIN,TOTAL 3.4 mg/dL (0.2-1.0)
[2024-07-25 00:08] LABS: DIFFERENTIAL COMMENT 1
[2024-07-25 01:01] LABS: BILIRUBIN,DIRECT 0.3 mg/dL (0.0-0.2)
[2024-07-25 01:02] VITALS: BP 134/84; O2SAT 99
== END 2024-07-25 01:02 | disposition home or self-care (01) ==
LOC: ER 22:45
DX: F10.10 Alcohol abuse, uncomplicated (principal); R20.2 Paresthesia of skin; R94.31 Abnormal electrocardiogram [ECG] [EKG]; F17.200 Nicotine dependence, unspecified, uncomplicated; K21.9 Gastro-esophageal reflux disease without esophagitis; Z87.39 Personal history of other diseases of the musculoskeletal system and connective tissue; Z60.2 Problems related to living alone; Z87.19 Personal history of other diseases of the digestive system; Y90.6 Blood alcohol level of 120-199 mg/100 ml
CPT/HCPCS: 36415; 83690; 83735; 85025; A4606; A4663; G0480; J7040

== ENCOUNTER 2024-09-03 08:14 | Emergency (ER) | payer MEDICAID ==
[~2024-09-03] VITALS: Ht 185.4 cm; Wt 79.4 kg
[2024-09-03] MEDS ORDERED: THIAMINE HCL 100 MG TABLET ONE (09:01)
[2024-09-03] MEDS ORDERED: MAGNESIUM SULFATE/D5W 100 ML ONE (09:01)
[2024-09-03] MEDS ORDERED: CHLORDIAZEPOXIDE HCL 25 MG CAPSULE ONE (09:04)
[2024-09-03] MEDS: THIAMINE HCL 100 MG TABLET PO ONE (09:08)
[2024-09-03] MEDS: CHLORDIAZEPOXIDE HCL 25 MG CAPSULE PO ONE (09:08)
[2024-09-03] MEDS: MAGNESIUM SULFATE/D5W 100 ML IV SCH (09:13)
[2024-09-03] MEDS: IV NORMAL SALINE 1000 ML BAG IV ONE (09:13)
[2024-09-03 09:31] LABS: PLATELET COUNT (AUTO) 217 K/uL (152-348); RED BLOOD CELL COUNT(AUTO) 4.65 MIL/uL (4.06-5.63); RED CELL DISTRIBUTION WIDTH 13.4 % (12.1-16.2); WHITE BLOOD COUNT (AUTO) 8.0 K/uL (3.6-10.2)
[2024-09-03 09:37] LABS: CREATININE 1.0 mg/dL (0.6-1.3); SODIUM SERUM 143.0 mmol/L (136-145); UREA NITROGEN, BLOOD 10.0 mg/dL (7-18)
[2024-09-03 09:43] LABS: ASPARTATE AMINOTRANSFERASE 24.0 U/L (15-37); TOTAL PROTEIN, SERUM 7.5 g/dL (6.4-8.2)
[2024-09-03] MEDS ORDERED: MAGNESIUM SULFATE/D5W 200 ML ONE (09:47)
[2024-09-03 11:04] LABS: *BILIRUBIN,URIN NEGATIVE (NEGATIVE); *BLOOD, URINE NEGATIVE (NEGATIVE); *CLARITY,URINE CLEAR (CLEAR); *COLOR,URINE YELLOW (YELLOW); *KETONES,URINE TRACE (NEGATIVE); *PROTEIN,URINE TRACE (NEGATIVE); *UROBILINOGEN,URINE 1.0 E.U./dl (NORMAL); LEUKOCYTE ESTERASE ,URINE NEGATIVE (NEGATIVE); NITRITE, URINE NEGATIVE (NEGATIVE); UGLUCOSE NEGATIVE (NEGATIVE)
[2024-09-03] MEDS ORDERED: CHLO25CA22 PO (11:31)
[2024-09-03 11:43] VITALS: BP 119/67; O2SAT 98
== END 2024-09-03 11:44 | disposition home or self-care (01) ==
LOC: ER 08:14
DX: F10.10 Alcohol abuse, uncomplicated (principal); R10.10 Upper abdominal pain, unspecified; E83.42 Hypomagnesemia; K21.9 Gastro-esophageal reflux disease without esophagitis; F17.200 Nicotine dependence, unspecified, uncomplicated; Z87.19 Personal history of other diseases of the digestive system; Z87.39 Personal history of other diseases of the musculoskeletal system and connective tissue; Z60.2 Problems related to living alone; Y90.9 Presence of alcohol in blood, level not specified
CPT/HCPCS: 99284; 96365; 96366; 80076; 80048; 81001; 83690; 83735; 85025; 36415; 93005; J3475 ×2; J7040; A4606; A4663

== ENCOUNTER 2025-01-21 21:42 | Emergency (ER) | payer MEDICAID ==
[~2025-01-21] VITALS: Ht 185.4 cm; Wt 77.1 kg
[~2025-01-21 21:42] MED LIST changes: +ONDA-243 PO; -ONDA4TAB11 PO
[2025-01-21 21:43] VITALS: BP 114/74
[2025-01-21] MEDS ORDERED: ONDANSETRON 4 MG/2 ML VIAL IV ONE (22:30)
[2025-01-21 22:44] LABS: PLATELET COUNT (AUTO) 291 K/uL (152-348); RED BLOOD CELL COUNT(AUTO) 4.97 MIL/uL (4.06-5.63); RED CELL DISTRIBUTION WIDTH 12.9 % (12.1-16.2); WHITE BLOOD COUNT (AUTO) 14.2 K/uL (3.6-10.2)
[2025-01-21] MEDS ORDERED: PANTOPRAZOLE SODIUM 40 MG VIAL ONE (22:45)
[2025-01-21] MEDS: IV NORMAL SALINE 500 ML IV ONE (22:46)
[2025-01-21] MEDS: PANTOPRAZOLE SODIUM IV 80 MG in IV DEXTROSE 5% 100 ML IV ONE (22:46)
[2025-01-21 22:51] LABS: CREATININE 1.1 mg/dL (0.6-1.3); SODIUM SERUM 143.0 mmol/L (136-145); UREA NITROGEN, BLOOD 11.0 mg/dL (7-18)
[2025-01-21 22:56] LABS: ETHANOL 149.0 MG/DL (0-10)
[2025-01-21 22:58] LABS: ASPARTATE AMINOTRANSFERASE 18.0 U/L (15-37); TOTAL PROTEIN, SERUM 8.1 g/dL (6.4-8.2)
[2025-01-21 23:54] LABS: *OCCULT BLOOD STOOL NEGATIVE (NEGATIVE)
[2025-01-22] MEDS ORDERED: LIDOCAINE VISCUS 2% 15 ML UDC ONE (00:26)
[2025-01-22] MEDS ORDERED: MAG HYDROX/AL HYDROX/SIMETH 30 ML LIQUID UDC ONE (00:26)
[2025-01-22] MEDS: LIDOCAINE VISCUS 2% 15 ML UDC MM ONE (00:29)
[2025-01-22] MEDS: MAG HYDROX/AL HYDROX/SIMETH 30 ML LIQUID UDC PO ONE (00:29)
[2025-01-22] MEDS ORDERED: OMEP40CA21 PO (01:01)
[2025-01-22 01:13] VITALS: BP 116/78; O2SAT 98
== END 2025-01-22 01:16 | disposition home or self-care (01) ==
LOC: ER 21:46
DX: F10.20 Alcohol dependence, uncomplicated (principal); K21.9 Gastro-esophageal reflux disease without esophagitis; F17.200 Nicotine dependence, unspecified, uncomplicated; K92.0 Hematemesis; K29.70 Gastritis, unspecified, without bleeding; Z79.899 Other long term (current) drug therapy; Z87.19 Personal history of other diseases of the digestive system; Z88.7 Allergy status to serum and vaccine
CPT/HCPCS: 36415; 71045; 83690; 83735; 85025; 85730; A4606; A4663; G0480; J2470; J7040